=== PATIENT | male | born 1940 | race Caucasian/White ===

== ENCOUNTER 2021-07-10 23:11 | Emergency (ER) | payer MEDICARE, OTHER ==
--- NOTE | 2021-07-11 00:13 | ED Physician Documentation ---
PD HPI HEAD INJURY - Stated complaint Stated Complaint: NAUSEA, POST FALL - Chief complaint Chief Complaint: Trauma Hd/Nk - History obtained from History obtained from: Patient - History of Present Illness Mechanism of head injury: Fell Where head injury occurred: A house / apartment Timing - onset: Yesterday Pain level now: 4 Location of injury: Top Quality of pain: Pain, Aching Associated symptoms: Nausea / vomiting. No: LOC, AMS, Amnesia, Neck pain Symptoms improve with: Nothing Symptoms worsen with: Light (mild photobic component to headache) Contributing factors: No: Anticoagulated, Intoxicated Similar symptoms before: Has not had sx before - Additional information Additional information: patient was walking up front steps of a relatives house yesterday when he tripped, causing him to fall forward. The vertex of his head struck a wall. He denies LOC and denies any other injury. He has since had a waxing and waning headache which became more pronounced at 4 PM today while at rest. He subsequently went for a walk and noted increasing headache and bilateral blurred vision. He then had dinner, noting mild photophobia with ongoing headache but resolution of the blurred vision. He then became nauseas and vomited, prompting his family to recommend he come to ED for evaluation. He does not take any blood thinners. 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 denies: Abdominal Pain Skin: denies: Laceration (s) Musculoskeletal: reports: Other (denies neck pain during HPI, but on ROS, he says his neck is a little sore) Neurologic: reports: Headache, Head injury. denies: Generalized weakness, Focal weakness, Numbness, LOC PD PAST MEDICAL HISTORY - Past Medical History Past Medical History: Yes Cardiovascular: Hypertension - Past Surgical History Past Surgical History: Yes General: Other - Present Medications Home Medications: Ambulatory Orders Medication Instructions Recorded Confirmed No Known Home Medications 07/10/21 07/10/21 - Allergies Allergies/Adverse Reactions: Allergies Allergy/AdvReac Type Severity Reaction Status Date / Time adhesive tape Allergy Rash Verified 07/10/21 23:18 - Social History Does the pt smoke?: No Smoking Status: Never smoker - Immunizations Immunizations are current?: No Immunizations: TDAP >10years/unknown PD ED PE NORMAL - Vitals Vital signs reviewed: Yes - General General: Alert and oriented X 3, No acute distress, Well developed/nourished - HEENT HEENT: PERRL, EOMI, Other (mild tenderness, swelling midline frontoparietal scalp without bony step-off) - Neck Neck: Other (mild mid/lower posterior neck tenderness without bony step-off) - Cardiac Cardiac: RRR, No murmur - Respiratory Respiratory: No respiratory distress, Clear bilaterally - Abdomen Abdomen: Soft, Non tender - Extremities Extremities: No deformity, Normal ROM s pain - Neuro Neuro: Alert and oriented X 3, switching clerk 2-12 intact, No motor deficit, No sensory deficit, Normal speech Eye Opening: Spontaneous Motor: Obeys Commands Verbal: Oriented GCS Score: 15 - Psych Psych: Normal mood, Normal affect Results - Vitals Vitals: Vital Signs - 24 hr 07/10/21 07/10/21 07/11/21 23:18 23:21 02:35 Temperature 36.8 C 36.8 C 36.8 C Heart Rate 77 71 76 Respiratory 15 16 20 Rate Blood Pressure 193/105 H 193/105 H 157/68 H O2 Saturation 93 94 95 07/11/21 02:36 Temperature 36.8 C Heart Rate 76 Respiratory 20 Rate Blood Pressure 157/68 H O2 Saturation 95 Oxygen O2 Source Room air - Rads (name of study) CTH Radiology: Prelim report reviewed, See rad report CT cervical spine Radiology: Prelim report reviewed, See rad report PD MEDICAL DECISION MAKING - ED course Complexity details: reviewed results, re-evaluated patient, considered differential, d/w patient ED course: presents after head injury yesterday with concerning symptoms today; specifically, gradually worsening headache, nausea and vomiting, and transient blurry vision. The blurry vision resolved PROOF TECHNICIAN HELPER as did the nausea (he declined antinauseants). His headache had improved without intervention and he also declined analgesics. His chief concern was, appropriately, the potential for serious injury. He also had mild neck pain and tenderness and thus CT cervical spine was performed in addition to the CTH; these demonstrated no acute find ings. This was reviewed with patient and he was reassured and comfortable with d/c home, will return if symptoms worsen/recur Departure - Departure Disposition: Home, Self Care Clinical Impression: Head injury Condition: Good Instructions: ED Head Injury Closed Follow-Up: Marko Talbert MD [Primary Care Provider] - Discharge Date/Time: 07/11/21 02:38
[2021-07-11 02:36] VITALS: BP 157/68
--- NOTE | 2021-07-11 07:48 | CT Report ---
PROCEDURE: HEAD WO INDICATIONS: fall, head injury, ALVA TECHNIQUE: Noncontrast 4.5 mm thick angled axial sections acquired from the foramen magnum to the vertex. For r adiation dose reduction, the following was used: automated exposure control, adjustment of mA and/or kV according to patient size. COMPARISON: None. FINDINGS: Image quality: Excellent. CSF spaces: Basal cisterns are patent. No extra-axial fluid collections. There is moderate cerebra l volume loss. Ventricles are prominent in size but symmetric in shape. Brain: No midline shift. No intracranial masses or hemorrhage. Miguel-white matter interface is norm al. Skull and face: Calvarium and visualized facial bones are intact, without suspicious lesions. Sinuses: Visualized sinuses and mastoids are clear. IMPRESSION: 1. No acute intracranial abnormality. 2. Moderate cerebral volume loss and periventricular white matter chronic small vessel ischemic cordero es. No significant discrepancy with the preliminary interpretation. Reviewed by: Wesley Childress MD on 07/11/2021 7:47 AM PDT Approved by: Wesley Childress MD on 07/11/2021 7:47 AM PDT Station ID: [id number]
--- NOTE | 2021-07-11 07:51 | CT Report ---
PROCEDURE: CERVICAL SPINE WO INDICATIONS: fall, head injury, neck pain TECHNIQUE: Noncontrast 3 mm thick sections acquired from the skull base to the T4 level. Sagittal and coronal r eformats were then constructed. For radiation dose reduction, the following was used: automated exp osure control, adjustment of mA and/or kV according to patient size. COMPARISON: None. FINDINGS: Image quality: Excellent. Bones: No fractures or dislocations. There is grade 1 anterolisthesis of C3 on C4 and C4 on C5. Dege nerative disc disease is present, severe at C3 C5-C6 and C6-C7. Bilateral facet arthropathy, most pro nounced at C2-C3 bilaterally, C3-C4 on the right and C4-C5 on the right. Severe atlantoaxial joint de generation. Visualized superior ribs are intact. Soft tissues: Prevertebral soft tissues are normal in thickness. No paravertebral hematomas. No ap ical pneumothoraces. IMPRESSION: 1. No cervical spine fracture. 2.Degenerative changes in cervical spine as described. No significant discrepancy with the preliminary interpretation. Reviewed by: Wesley Childress MD on 07/11/2021 7:50 AM PDT Approved by: Wesley Childress MD on 07/11/2021 7:50 AM PDT Station ID: [id number]
== END 2021-07-11 02:38 | disposition home or self-care (01) ==
LOC: ED 23:11
DX: S09.90XA Unspecified injury of head, initial encounter (principal); W01.0XXA Fall on same level from slipping, tripping and stumbling without subsequent striking against object, initial encounter; Y93.01 Activity, walking, marching and hiking; Y92.039 Unspecified place in apartment as the place of occurrence of the external cause; I10 Essential (primary) hypertension
CPT/HCPCS: 99282; 99284

== ENCOUNTER 2022-03-04 13:34 | Outpatient (CLI) | payer MEDICARE, OTHER ==
--- NOTE | 2022-03-04 17:13 | XRAY Report ---
PROCEDURE: Hand 3 View LT INDICATIONS: PAIN OF LEFT HAND TECHNIQUE: 3 views of the hand(s) acquired. COMPARISON: None FINDINGS: Bones: No fractures or dislocations. No suspicious bony lesions. Moderate triscaphe joint arthritis . Mild first CMC joint, first MCP joint and first DIP joint arthritis. Soft tissues: No suspicious soft tissue calcifications. IMPRESSION: Osteoarthritis. No fracture. No acute osseous lesion. If there persistent symptoms or continued clinical concern for pathology, then repeat plain film radiographs (7-10 days) or advanced imaging (CT, MR, bone scan) anayeli uld be considered for further evaluation. Reviewed by: Rosina Anderson MD, PhD on 03/04/2022 5:12 PM PDT Approved by: Rosina Anderson MD, PhD on 03/04/2022 5:12 PM PDT Station ID: [id number]
--- NOTE | 2022-03-04 17:13 | XRAY Report ---
PROCEDURE: Wrist 3 View LT INDICATIONS: PAIN OF LEFT WRIST TECHNIQUE: 3 views of the wrist were acquired. COMPARISON: None FINDINGS: Bones: Ulnar negative variance is seen. Moderate wrist joint osteoarthritic changes are seen most pr ominent involving scaphotrapezial and first CMC joint. There is widening of scapholunate interval con cerning for injury to scapholunate ligament. No fractures or dislocations. No suspicious bony lesion s. Scaphoid view: Scaphoid is grossly intact. Soft tissues: No suspicious soft tissue calcifications. IMPRESSION: 1. No acute wrist fracture or dislocation. 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 2. Suggestion of injury to scapholunate ligament. Reviewed by: Quirino Giang MD on 03/04/2022 5:12 PM PDT Approved by: Quirino Giang MD on 03/04/2022 5:12 PM PDT Station ID: [id number]
== END 2022-03-04 13:35 | disposition home or self-care (01) ==
LOC: DI.S 13:34
PROVIDERS: ATTEND Family Medicine
DX: M19.032 Primary osteoarthritis, left wrist (principal); M18.12 Unilateral primary osteoarthritis of first carpometacarpal joint, left hand

== ENCOUNTER 2022-06-08 15:06 | Outpatient (CLI) | payer MEDICARE, OTHER ==
--- NOTE | 2022-06-08 20:16 | XRAY Report ---
PROCEDURE: Knee 3 View LT INDICATIONS: UNSTABLE KNEE TECHNIQUE: 3 views of the left knee(s) were acquired. COMPARISON: None. FINDINGS: Bones: No fractures or dislocations. No suspicious bony lesions. Moderate medial and mild lateral joint space narrowing. Moderate patellofemoral joint space narrowing. Marginal osteophytes present. S mall joint effusion. Soft tissues: No joint effusion. No suspicious soft tissue calcifications. IMPRESSION: Moderate osteoarthritis and joint effusion Reviewed by: Daron Andersen MD on 06/08/2022 7:13 PM BOB Approved by: Daron Andersen MD on 06/08/2022 7:13 PM AKCYNDEE Station ID: [id number]
== END 2022-06-08 15:07 | disposition home or self-care (01) ==
LOC: DI.S 15:06
PROVIDERS: ATTEND Nurse Practitioner Family
DX: M17.12 Unilateral primary osteoarthritis, left knee (principal); M25.462 Effusion, left knee

== ENCOUNTER 2024-01-27 20:38 | Emergency (ER) | payer MEDICARE, OTHER ==
--- NOTE | 2024-01-27 21:09 | ED Physician Documentation ---
History of Present Illness - Stated complaint Stated Complaint: HIGH HR - Chief complaint Chief Complaint: Cardiac - History obtained from History obtained from: Patient, Family () - Additonal information Additional information: 83yM with pmh tia, paroxysmal afib not on meds, htn on losartan, p/w episode of word finding difficulty at 2pm today lasting about an hour and accompanied by palpitations that have persisted to ED presentation. His cardia monitor said he was in afib as of 3pm. patient also has previous records showing intermittent afib on the cardia record in the past couple months. Echocardiogram performed today at [facility]. unsure of results. denies other fnd. PD PAST MEDICAL HISTORY - Past Medical History Past Medical History: Yes Cardiovascular: Hypertension - Past Surgical History Past Surgical History: Yes General: Other Derm: Other - Present Medications Home Medications: Ambulatory Orders Medication Instructions Recorded Confirmed Apixaban [Eliquis] 5 mg PO BID #30 tablet 01/27/24 Losartan Potassium 25 mg PO DAILY 01/27/24 01/27/24 Metoprolol Tartrate [Lopressor] 25 mg PO BID #30 tablet 01/27/24 - Allergies Allergies/Adverse Reactions: Allergies Allergy/AdvReac Type Severity Reaction Status Date / Time adhesive tape Allergy Rash Verified 01/27/24 21:01 - Social History Does the pt smoke?: No Smoking Status: Never smoker Does the pt drink ETOH?: Yes ETOH Use: Beer Does the pt have substance abuse?: No - Immunizations Immunizations are current?: No Immunizations: TDAP >10years/unknown - POLST Patient has POLST: No PD ED PE NORMAL - Vitals Vital signs reviewed: Yes - General General: Alert and oriented X 3, No acute distress, Well developed/nourished - HEENT HEENT: Atraumatic, PERRL, EOMI, Moist mucous membranes, Pharynx benign - Neck Neck: Supple, no meningeal sign - Cardiac Cardiac: Other (tachycardic rate, irregular rhythm) - Respiratory Respiratory: No respiratory distress, Clear bilaterally - Abdomen Abdomen: Non tender, Non distended - Derm Derm: Normal color, Warm and dry - Neuro Neuro: Alert and oriented X 3, director dietetics department 2-12 intact, No motor deficit, No sensory deficit, Normal speech Eye Opening: Spontaneous Motor: Obeys Commands Verbal: Oriented GCS Score: 15 Results - Vitals Vitals: Vital Signs - 24 hr 01/27/24 01/27/24 01/27/24 20:45 21:26 22:00 Temperature 36.7 C Heart Rate 135 H 113 H 87 Respiratory 18 18 18 Rate Blood Pressure 163/114 H 165/95 H 156/89 H O2 Saturation 98 97 98 01/27/24 01/27/24 23:00 23:30 Temperature Heart Rate 86 87 Respiratory 18 18 Rate Blood Pressure 151/110 H 133/84 H O2 Saturation 98 98 Oxygen O2 Source Room air - EKG (time done) 2100 EKG releavant findings:: EKG personally interpreted by author of this note. Relevant findings are: Rate: Rate (enter#) (112) Rhythm: Atrial fibrillation [place]: Normal QRS: Normal Computer interpretation: Disagree with computer (no significant st depression) - Labs Labs: Laboratory Tests 01/27/24 01/27/24 21:15 21:15 WBC 6.6 RBC 4.50 L Hgb 14.1 Hct 41.2 L MCV 91.6 MCH 31.3 H MCHC 34.2 RDW 13.2 Plt Count 202 MPV 11.5 H Neut # (Auto) 3.7 Lymph # (Auto) 1.8 [place] # (Auto) 0.8 Eos # (Auto) 0.3 Baso # (Auto) 0.0 Absolute Nucleated RBC 0.00 Nucleated RBC % 0.0 Sodium 132 L Potassium 4.6 H Chloride 100 L Carbon Dioxide 26 Anion Gap 6.0 BUN 17 Creatinine 1.0 Estimated GFR (MDRD) 72 L Glucose 112 H Calcium 9.9 Total Bilirubin 0.3 AST 23 ALT 15 Alkaline Phosphatase 65 Total Protein 7.0 Albumin 4.5 Globulin 2.5 Albumin/Globulin Ratio 1.8 Lipase 34 PD Medical Decision Making - ED course ED course: 83yM with pmh paroxysmal afib p/w acute episode palpitations and word finding difficulty at 2pm, found to be in rapid afib here in the ED with no FND. cbc, abdominal panel, cxr, ekg, cta head/neck ordered. attempting to obtain echocardiogram records. if no thrombus, option to cardiovert either chemically or electrically. IV metoprolol provided in the meantime for BP and rate control. Sodium 132 and K 4.6, borderline high. no acute ekg changes notable. hr controlled with IV metoprolol. awaiting echo records. cxr and cta head and neck negative for acute pathology. likely plan to dc home with AC and rate control meds to f/u with cardiology outpatient. return precautions given. Departure - Departure Disposition: Home, Self Care Clinical Impression: Word finding difficulty, TIA (transient ischemic attack), Afib Condition: Fair Instructions: TIA, Atrial Fibrillation Dc Prescriptions: Apixaban [Eliquis] 5 mg PO BID #30 tablet Metoprolol Tartrate [Lopressor] 25 mg PO BID #30 tablet Comments: You were seen in the emergency department for a fib and TIA. Your imaging was normal. Your heart rate was controlled with IV metoprolol and a prescription for this and for eliquis was sent to [facility]. Please follow-up with your primary care provider and block piler and return to the emergency department if you have any new or worsening symptoms or other concerns. Forms: PCP List
[2024-01-27 21:23] LABS: BASOPHILS % (AUTO) 0.6 %; EOSINOPHILS # (AUTO) 0.3 10^3/uL (0.0-0.7); EOSINOPHILS % (AUTO) 4.7 %; HCT - HEMATOCRIT 41.2 % (42.0-52.0); HGB - HEMOGLOBIN 14.1 g/dL (14.0-18.0); LYMPHOCYTES # (AUTO) 1.8 10^3/uL (1.5-3.5); LYMPHOCYTES % (AUTO) 26.9 %; MEAN CORPUSCULAR HEMOGLOBIN 31.3 pg (27.0-31.0); MEAN CORPUSCULAR HGB CONC 34.2 g/dL (32.0-36.0); MEAN CORPUSCULAR VOLUME 91.6 fL (80.0-94.0); MEAN PLATELET VOLUME 11.5 fL (7.4-11.4); MONOCYTES # (AUTO) 0.8 10^3/uL (0.0-1.0); MONOCYTES % (AUTO) 11.8 %; NEUTROPHILS # (AUTO) 3.7 10^3/uL (1.5-6.6); NEUTROPHILS % (AUTO) 55.7 %; PLT - PLATELET COUNT 202 10^3/uL (130-450); RED CELL DISTRIBUTION WIDTH 13.2 % (12.0-15.0); WHITE BLOOD COUNT 6.6 x10^3/uL (4.8-10.8)
[2024-01-27] MEDS ORDERED: iohexoL-300 100 ML VIAL ONE (21:42)
[2024-01-27] MEDS: METOPROLOL 5 MG/5 ML VIAL IVP STA ×2 (21:42→22:38)
[2024-01-27 22:02] LABS: ALBUMIN 4.5 g/dL (3.2-5.5); ALBUMIN/GLOBULIN RATIO 1.8 (1.0-2.2); BILIRUBIN,TOTAL 0.3 mg/dL (0.2-1.0); CALCIUM 9.9 mg/dL (8.5-10.3); POTASSIUM 4.6 mmol/L (3.5-4.5)
--- NOTE | 2024-01-27 22:11 | XRAY Report ---
PROCEDURE: Chest 1V INDICATIONS: Chest Pain TECHNIQUE: One view of the chest was acquired. COMPARISON: None. FINDINGS: Surgical changes and devices: None. Lungs and pleura: No pleural effusions or pneumothorax. Lungs are clear. Mediastinum: Mediastinal contours appear normal. Heart size is normal. Bones and chest wall: No suspicious bony lesions. Overlying soft tissues appear unremarkable. IMPRESSION: No acute cardiopulmonary process. Reviewed by: Steve Knutson MD on 01/27/2024 10:10 PM PDT Approved by: Steve Knutson MD on 01/27/2024 10:10 PM PDT Station ID: [id number]
[2024-01-27 22:31] VITALS: O2SAT 98
[2024-01-27] MEDS: iohexoL-300 100 ML VIAL IVP ONE (22:40)
--- NOTE | 2024-01-27 22:49 | CT Report ---
PROCEDURE: Angio Head/Neck INDICATIONS: word finding difficulty 2pm , now resolved. hx tia TECHNIQUE: After the administration of intravenous contrast, 1 mm thick sections acquired from the aortic arch t hrough the [place] of [place]. 3-dimensional apqpyqq-tskumtevf-[id number] (MIP) and/or volume renderin g reformats were acquired of the central intracranial vasculature and neck separately. For radiation dose reduction, the following was used: automated exposure control, adjustment of mA and/or kV acco rding to patient size. CONTRAST: 80 mL Omnipaque 300 COMPARISON: CT head 07/11/2021 FINDINGS: Image quality: Diagnostic. HEAD CT: CSF Spaces: Basal cisterns are patent. No extra-axial fluid collections. Ventricles are normal in size and shape. Brain: The brain is within normal limits for age and scanning technique. Scattered hypodensities in the subcortical and periventricular white matter compatible with chronic microvascular ischemic yadav ges appear Skull and face: Calvarium and visualized facial bones appear intact, without suspicious lesions. Sinuses: Visualized sinuses and mastoids are clear. HEAD CT ANGIOGRAPHY: Anterior circulation: Intracranial internal carotid arteries are normal in size and flow. The flow within the paired anterior cerebral arteries is normal and symmetric. The flow within the middle cer ebral arteries is normal and symmetric. The anterior communicating artery is seen. No aneurysms are seen. Posterior circulation: Visualized portions of the vertebral arteries demonstrate normal caliber, and join to form a normal appearing basilar artery. Flow within the posterior cerebral arteries is norm al and symmetric. No aneurysms are seen. NECK CT ANGIOGRAPHY: Carotid system: The great vessels demonstrate a conventional anatomy as they arise from the aortic a rch. The origins of the common carotid arteries appear patent. The common carotid arteries demonstr ate normal caliber and courses. The bifurcation regions are both widely patent. The internal caroti d arteries demonstrate normal calibers and courses. Posterior circulation: The origins of the vertebral arteries both appear widely patent. The more rivera perior extracranial portions of both vertebral arteries also demonstrate normal courses and calibers. They join to form a normal appearing basilar artery. Soft tissues: Visualized neck soft tissues demonstrate no suspicious abnormalities. Bones: No suspicious bony lesions. Multilevel degenerative changes are seen in the spine. IMPRESSION: 1.No significant intracranial arterial abnormality is seen. 2.No significant abnormality is seen within the arteries of the neck. 3.Chronic microvascular ischemic changes in the brain. The estimate of stenosis included in the report of the imaging study was calculated using the NASCET method Reviewed by: Steve Knutson MD on 01/27/2024 10:48 PM PDT Approved by: Steve Knutson MD on 01/27/2024 10:48 PM PDT Station ID: [id number]
[2024-01-28 00:15] VITALS: BP 133/80
== END 2024-01-28 00:06 | disposition home or self-care (01) ==
LOC: ED 20:38
DX: G45.9 Transient cerebral ischemic attack, unspecified (principal); I48.0 Paroxysmal atrial fibrillation; R47.89 Other speech disturbances; I10 Essential (primary) hypertension; Z79.899 Other long term (current) drug therapy
CPT/HCPCS: 36415; 70496; 70498; 71045; 80053; 83690; 85025; 93005; 96374; 96376; 99284; Q9967